=== PATIENT | male | born 1985 | race African-American/Black ===

== ENCOUNTER 2017-06-17 09:20 | Emergency (ER) | payer OTHER ==
[~2017-06-17] VITALS: Ht 188 cm; Wt 90.0 kg
[2017-06-17 09:24] VITALS: Ht 188 cm; Wt 90.0 kg
--- NOTE | 2017-06-17 09:42 | ERA ---
ER Documentation Chief Complaint Date/Time DATE: 06/17/17 TIME: 09:39 Chief Complaint BIB [facility] AND [employer] FOR EVAL OF AGIATION EPISODE AT HOME. HPI This is a 32-year-old male that was brought into the emergency department by [employer] after he got into a verbal altercation with his mother. He became very agitated and broke some furniture when she phone 911. She felt threatened by the patient. The patient states he has a history of depression but does not take any medication. He denies any suicidal or homicidal thoughts ideations. He indicates that November 18, 2015 he had been placed on hold at [employer]. ROS All systems reviewed and are negative except as per history of present illness. Medications Home Meds No Active Prescriptions or Reported Meds Allergies Allergies: Coded Allergies: No Known Allergy (Unverified , 06/17/17) Physical Exam Vitals Vital Signs Date Time Temp Pulse Resp B/P Pulse Ox O2 Delivery O2 Flow Rate FiO2 06/17/17 14:06 98.0 76 18 125/71 98 Room Air 06/17/17 09:24 98.2 107 19 129/68 97 Physical Exam Constitutional:Well-developed. Well-nourished. Patient spoke in a very loud tone HEENT:Normocephalic. Atraumatic.Pupils were equal round reactive to light. Moist mucous membranes.No tonsillar exudates. Neck: No nuchal rigidity. No lymphadenopathy. No posterior cervical spine tenderness or step-offs. Respiratory: Not using accessory muscles of respiration.Lungs were clear to auscultation bilaterally. No rhonchi. No rales. No wheezing. Cardiovascular: Regular rate regular rhythm.No murmurs. No rubs were appreciated.S1, S2 normal. Distal pulses are palpable 2+ bilaterally. GI: Abdomen was soft. Nontender. Non Distended. No pulsatile abdominal masses or bruits. No rebound. No guarding. Bowel sounds were present and normal. Muscle skeletal: Full range of motion of both the upper and lower extremities bilaterally.Normal muscle tone.No assymetrical calf tenderness or swelling. Skin: No petechia, no purpura. No lesions on the palms or the soles of the feet. No maculopapular rash. NEURO: Patient was alert, awake, orientated x3.No facial droop. Gait observed and normal with no ataxia.Speech had regular rate and rhythm. No focal neurological deficits. Patient made good eye contact. Patient denied any suicidal or homicidal thoughts ideations. He denied any auditory tactile or visual hallucinations. Result Diagram: 06/17/17 0842 06/17/17 0842 Results 24 hrs Laboratory Tests Test 06/17/17 08:42 06/17/17 10:15 White Blood Count 4.810^3/ul Red Blood Count 4.9810^6/ul Hemoglobin 13.6g/dl Hematocrit 42.7% Mean Corpuscular Volume 85.7fl Mean Corpuscular Hemoglobin 27.3pg Mean Corpuscular Hemoglobin Concent 31.9g/dl Red Cell Distribution Width 14.0% Platelet Count 73413^3/UL Mean Platelet Volume 11.9fl Neutrophils % 62.2% Lymphocytes % 26.9% Monocytes % 10.3% Eosinophils % 0.2% Basophils % 0.2% Nucleated Red Blood Cells % 0.0/100WBC Neutrophils # 3.010^3/ul Lymphocytes # 1.310^3/ul Monocytes # 0.510^3/ul Eosinophils # 0.010^3/ul Basophils # 0.010^3/ul Nucleated Red Blood Cells # 0.010^3/ul Prothrombin Time 12.0Sec Prothrombin Time Ratio 0.9 INR International Normalized Ratio 0.89 Activated Partial Thromboplast Time 25.5Sec Sodium Level 145mmol/L Potassium Level 4.1mmol/L Chloride Level 102mmol/L Carbon Dioxide Level 28mmol/L Anion Gap 19 Blood Urea Nitrogen 16mg/dl Creatinine 1.20mg/dl Glucose Level 86mg/dl Calcium Level 9.8mg/dl Total Bilirubin 0.3mg/dl Direct Bilirubin 0.00mg/dl Indirect Bilirubin 0.3mg/dl Aspartate Amino Transf (AST/SGOT) 49IU/L Alanine Aminotransferase (ALT/SGPT) 63IU/L Alkaline Phosphatase 71IU/L Total Protein 7.6g/dl Albumin 4.5g/dl Globulin 3.10g/dl Albumin/Globulin Ratio 1.45 Salicylates Level < 1.0mg/dl Acetaminophen Level < 10.0ug/ml Ethyl Alcohol Level < 10.0mg/dl Urine Color YELLOW Urine Clarity CLEAR Urine pH 5.0 Urine Specific [place] 1.027 Urine Ketones NEGATIVEmg/dL Urine Nitrite NEGATIVEmg/dL Urine Bilirubin NEGATIVEmg/dL Urine Urobilinogen NEGATIVEmg/dL Urine Leukocyte Esterase NEGATIVELeu/ul Urine Microscopic RBC 1/HPF Urine Microscopic WBC 1/HPF Urine Bacteria FEW/HPF Urine Mucus FEW/HPF Urine Hemoglobin 1+mg/dL Urine Glucose NEGATIVEmg/dL Urine Total Protein NEGATIVEmg/dl Urine Opiates Screen Negative Urine Barbiturates Negative Urine Amphetamines Screen Negative Urine Benzodiazepines Screen Negative Urine Cocaine Screen Negative Urine Cannabinoids Negative Current Medications Medications (Trade) Dose Ordered Sig/Scott Route PRN Reason Start Time Stop Time Status Last Admin Dose Admin Oxymetazoline HCl (Afrin [place]) 2 spray ONCE ONCE NASAL 06/17/17 10:00 06/17/17 10:01 Cancel Procedures/MDM This patient presented to the emergency department with acute agitation by [employer] and my differential diagnosis included but was not limited to ruling out life threatening causes of acute psychosis such as Wernickes encephalopathy, hypoxia , hypoglycemia, hypertensive encephalopathy, intracerebral hemorrhage, meningitis, poisoning. After my evaluation and workup on the patient I was able to exclude medical and reversible causes of the patients psychosis and agitation. It was my clinical impression the patients symptoms were an exacerbation of his psychiatric disorder; therefore, the patient was medically cleared by myself at this time for psychiatric evaluation. He did not require any chemical sedation in the emergency department as the patient was able to be controlled with verbal de- escalation when he appeared to get very angry. He was not placed on hold by [employer]. The patient had been seen by the telemetry psychiatrist who recommended that the patient had a history of depression and marked impulse control however the patient did not seem to be psychotic and there was no record of potential harm to anyone or himself. He denied any suicidal homicidal ideations to the psychiatrist as well and also stated that inpatient hospitalization would not benefit this patient at this time but the psychologist recommended obtaining a full parallel history from the mother. If she indicated that the patient was a direct risk to her that he would require admission. Our drug abuse social worker was contacted and he was able to speak with the patient's mother who is coming to the hospital to speak with both myself and the patient. At 1520 the patient's mother had arrived. I spoke with her personally as did the drug abuse social worker. She stated she did not feel that her son was a threat to herself or others. She stated she felt comfortable with him being discharged back to her house. The patient again at the time of discharge denied any suicidal homicidal thoughts or ideations. The patient was discharged home in fair condition. They were instructed to return to the emergency department at any time if there was any worsening of their condition. The patient stated they would follow up with their PCP in the next 24-48 hours to initiate a suitable medication regimen under the care of their PCP as well as to allow their PCP to monitor any drug reactions. The patient was discharged home with prescriptions after they gave informed consent to the new medication. They were also fully informed by myself on the adverse effects and adverse drug interactions in order to provide adequate safeguards to prevent possible adverse reactions to medications. Departure Diagnosis: Primary Impression: Agitation Condition: Fair CONNOR STRAUSS Jun 17, 2017 09:42
[2017-06-17 09:58] LABS: BASOPHILS % 0.2 % (0.0-2.0); EOSINOPHILS % 0.2 % (0.0-7.0); HEMATOCRIT 42.7 % (42.0-52.0); HEMOGLOBIN 13.6 g/dl (14.0-18.0); LYMPHOCYTES # 1.3 10^3/ul (0.8-2.9); LYMPHOCYTES % 26.9 % (15.0-51.0); MEAN CORPUSCULAR HEMOGLOBIN 27.3 pg (29.0-33.0); MEAN CORPUSCULAR HGB CONC 31.9 g/dl (32.0-37.0); MEAN CORPUSCULAR VOLUME 85.7 fl (82.0-101.0); MEAN PLATELET VOLUME 11.9 fl (7.4-10.4); MONOCYTE # 0.5 10^3/ul (0.3-0.9); MONOCYTES % 10.3 % (0.0-11.0); NEUTROPHILS % 62.2 % (39.0-77.0); PLATELET COUNT 203 10^3/UL (140-415); RED BLOOD COUNT 4.98 10^6/ul (4.70-6.10); WHITE BLOOD COUNT 4.8 10^3/ul (4.8-10.8)
[2017-06-17] MEDS ORDERED: OXYMETAZOLINE 0.05% 15 ML NAS SPRAY NASAL ONE (10:00)
[2017-06-17 10:20] LABS: INR 0.89; PT RATIO 0.9
[2017-06-17 10:21] LABS: PARTIAL THROMBOPLASTIN TIME 25.5 Sec (25.0-35.0)
[2017-06-17 10:24] LABS: ALANINE AMINOTRANSFERASE 63 IU/L (13-69); ALBUMIN 4.5 g/dl (3.3-4.9); ALBUMIN/GLOBULIN RATIO 1.45; ALKALINE PHOSPHATASE 71 IU/L (42-121); ANION GAP 19 (8-16); ASPARTATE AMINO TRANSFERASE 49 IU/L (15-46); BILIRUBIN,INDIRECT 0.3 mg/dl (0-1.1); BILIRUBIN,TOTAL 0.3 mg/dl (0.2-1.3); BLOOD UREA NITROGEN 16 mg/dl (7-20); CALCIUM 9.8 mg/dl (8.4-10.2); CARBON DIOXIDE 28 mmol/L (21-31); CHLORIDE 102 mmol/L (97-110); GLUCOSE 86 mg/dl (70-220); POTASSIUM 4.1 mmol/L (3.5-5.1); SODIUM 145 mmol/L (135-144); TOTAL PROTEIN 7.6 g/dl (6.1-8.1)
[2017-06-17 10:41] LABS: ACETAMINOPHEN < 10.0 ug/ml (10.0-30.0); ETHANOL < 10.0 mg/dl; SALICYLATE < 1.0 mg/dl (5.0-30.0)
[2017-06-17 10:45] LABS: ADD UMIC YES; UR ASCORBIC ACID NEGATIVE (NEGATIVE); UR BACTERIA FEW /HPF (NONE SEEN); UR BILIRUBIN (Dip) NEGATIVE (NEGATIVE); UR BLOOD (Dip) 1+ mg/dL (NEGATIVE); UR CLARITY CLEAR (CLEAR); UR COLOR YELLOW (YELLOW); UR GLUCOSE (Dip) NEGATIVE (NEGATIVE); UR KETONES (Dip) NEGATIVE (NEGATIVE); UR LEUKOCYTE ESTERASE (Dip) NEGATIVE Leu/ul (NEGATIVE); UR MUCUS FEW /HPF (NONE SEEN); UR NITRITE (Dip) NEGATIVE (NEGATIVE); UR RBC 1 /HPF (0-5); UR SPECIFIC GRAVITY (Dip) 1.027 (1.003-1.030); UR TOTAL PROTEIN (Dip) NEGATIVE (NEGATIVE); UR UROBILINOGEN (Dip) NEGATIVE (NEGATIVE)
[2017-06-17 10:49] LABS: BARBITURATES Negative (NEGATIVE); BENZODIAZEPINES Negative (NEGATIVE); CANNABINOIDS Negative (NEGATIVE); COCAINE Negative (NEGATIVE); OPIATES Negative (NEGATIVE)
--- NOTE | 2017-06-17 11:22 | PSY ---
Date/Time of Note Date/Time of Note DATE: 06/17/17 TIME: 14:17 Psychiatric Subjective Eval Consent Pt consented to telemedicine: Yes Subjective Evaluation Patient location: emergency Chief Complaint: BIB [facility] AND [employer] FOR EVAL OF AGIATION EPISODE AT HOME. History of present illness HPI: This is a 32-year-old male that was brought into the emergency department by [employer] after he got into a verbal altercation with his mother. He became very agitated and broke some furniture when she phoned 911. She reportedly (per previous notes) felt threatened by the patient. The patient states he has a history of depression but does not take any medication. He denies any suicidal or homicidal thoughts or ideation. He indicates that November 18, 2015 he had been placed on hold at [employer] [facility]. He stacey any psychosis. Denies drug use. past Psych Hx: as in hpi, denies treatment or any suicidal history PMH: denies All: denies Meds: denies MSe: calm, dysthymic, restricted affect, organized, no elusions no avh no si/hi imp: 32 yo male with ho depression and marked impulse control. However, pt villanueva snot seem to be psychotic, there is no record of potential harm to anyone or himself. Villanueva snot appear to be in major mood episode. Villanueva snot appear to have indicated any SI or HI. It is not clear that inpatient hospitalization would benefit this pt as he villanueva snot appear to be in a mood or psychiatric episode, but has impulse control issues that are limited to inanimate objects and yelling. Would recommend, obtaining full parallel hx from the mother. If she indicates that pt was a direct risk to her then he would require an admission. If she indicates that he is in a mood or psychotic episode may require admission. If none of these, then would recommend a family meeting with social workerto figure how to move forward. for moderate agitation risperidone 2mg po and ativan 2mg po prn -for severe agitation haldol 5mg IM, ativan 2mg IM, cogentin 1mg im prn Medical history Problems Medical Problems: (1) Agitation Status: Acute Allergies: Coded Allergies: No Known Allergy (Unverified , 06/17/17) Psychiatric Objective Eval Mental Status Examination: Laboratory Results Laboratory Tests Test 06/17/17 08:42 06/17/17 10:15 White Blood Count 4.810^3/ul Red Blood Count 4.9810^6/ul Hemoglobin 13.6g/dl Hematocrit 42.7% Mean Corpuscular Volume 85.7fl Mean Corpuscular Hemoglobin 27.3pg Mean Corpuscular Hemoglobin Concent 31.9g/dl Red Cell Distribution Width 14.0% Platelet Count 72455^3/UL Mean Platelet Volume 11.9fl Neutrophils % 62.2% Lymphocytes % 26.9% Monocytes % 10.3% Eosinophils % 0.2% Basophils % 0.2% Nucleated Red Blood Cells % 0.0/100WBC Neutrophils # 3.010^3/ul Lymphocytes # 1.310^3/ul Monocytes # 0.510^3/ul Eosinophils # 0.010^3/ul Basophils # 0.010^3/ul Nucleated Red Blood Cells # 0.010^3/ul Prothrombin Time 12.0Sec Prothrombin Time Ratio 0.9 INR International Normalized Ratio 0.89 Activated Partial Thromboplast Time 25.5Sec Sodium Level 145mmol/L Potassium Level 4.1mmol/L Chloride Level 102mmol/L Carbon Dioxide Level 28mmol/L Anion Gap 19 Blood Urea Nitrogen 16mg/dl Creatinine 1.20mg/dl Glucose Level 86mg/dl Calcium Level 9.8mg/dl Total Bilirubin 0.3mg/dl Direct Bilirubin 0.00mg/dl Indirect Bilirubin 0.3mg/dl Aspartate Amino Transf (AST/SGOT) 49IU/L Alanine Aminotransferase (ALT/SGPT) 63IU/L Alkaline Phosphatase 71IU/L Total Protein 7.6g/dl Albumin 4.5g/dl Globulin 3.10g/dl Albumin/Globulin Ratio 1.45 Salicylates Level < 1.0mg/dl Acetaminophen Level < 10.0ug/ml Ethyl Alcohol Level < 10.0mg/dl Urine Color YELLOW Urine Clarity CLEAR Urine pH 5.0 Urine Specific [place] 1.027 Urine Ketones NEGATIVEmg/dL Urine Nitrite NEGATIVEmg/dL Urine Bilirubin NEGATIVEmg/dL Urine Urobilinogen NEGATIVEmg/dL Urine Leukocyte Esterase NEGATIVELeu/ul Urine Microscopic RBC 1/HPF Urine Microscopic WBC 1/HPF Urine Bacteria FEW/HPF Urine Mucus FEW/HPF Urine Hemoglobin 1+mg/dL Urine Glucose NEGATIVEmg/dL Urine Total Protein NEGATIVEmg/dl Urine Opiates Screen Negative Urine Barbiturates Negative Urine Amphetamines Screen Negative Urine Benzodiazepines Screen Negative Urine Cocaine Screen Negative Urine Cannabinoids Negative TISHA HINOJOSA Jun 17, 2017 11:22
[2017-06-17 15:36] VITALS: BP 129/84; PULSE 72; RESP 19; TEMP 98.6
== END 2017-06-17 15:37 | disposition home or self-care (01) ==
LOC: E/R 09:20
DX: R45.1 Restlessness and agitation (principal)
CPT/HCPCS: 36415; 80053; 80306; 80307; 81001; 85025; 85610; 85730; Z7502; 99283